=== PATIENT | male | born 1965 | race African-American/Black ===

== ENCOUNTER 2018-07-09 08:30 | Emergency (ER) | payer OTHER ==
[2018-07-09] MEDS ORDERED: Ketorolac Tromethamine 30 MG/ML VIAL ONE (08:56)
== END 2018-07-09 09:12 | disposition home or self-care (01) ==
LOC: SCSER 08:30
DX: S39.012A Strain of muscle, fascia and tendon of lower back, initial encounter (principal); E78.2 Mixed hyperlipidemia; I10 Essential (primary) hypertension; F17.210 Nicotine dependence, cigarettes, uncomplicated; Z79.899 Other long term (current) drug therapy; V43.52XA Car driver injured in collision with other type car in traffic accident, initial encounter
CPT/HCPCS: 96372; J1885

== ENCOUNTER 2023-09-23 15:15 | Outpatient (CLI) | payer OTHER | END 2023-09-23 15:16 | disposition home or self-care (01) | LOC: BICRAD 15:15 | PROVIDERS: ATTEND Preventive Medicine Occupational Medicine | DX: Z02.71 Encounter for disability determination (principal); M19.041 Primary osteoarthritis, right hand; M89.9 Disorder of bone, unspecified | CPT/HCPCS: 72100 ==